=== PATIENT | male | born 1955 | race Caucasian/White ===

== ENCOUNTER 2023-03-11 03:10 | Emergency (ER) | payer OTHER ==
[2023-03-11] MEDS ORDERED: ACETAMINOPHEN 500 MG TAB ONE (04:46)
--- NOTE | 2023-03-11 05:13 | ER ---
Nurse's Notes [facility] Name: Aneesh Ledesma Age: 67 yrs Sex: Male : 1955 Arrival Date: 03/11/2023 Time: 03:10 Bed 8 Private MD: Diagnosis: Fall from standing;Closed head injury Presentation: 03/11 03:12 Chief complaint: Patient states: fell in bathroom pt reports fell forward and hit upper kl lip on bathtub fell lorelei and may have hit back of head on door no active bleeding noted Per EMS patient refused assessment pt refusing tetanus. Coronavirus screen: Vaccine status: Patient reports being unvaccinated. Ebola Screen: Patient negative for fever greater than or equal to 101.5 degrees Fahrenheit, and additional compatible Ebola Virus Disease symptoms. Initial Sepsis Screen: Does the patient meet any 2 criteria? No. Patient's initial sepsis screen is negative. Does the patient have a suspected source of infection? No. Patient's initial sepsis screen is negative. Risk Assessment: Do you want to hurt yourself or someone else? Patient reports no desire to harm self or others. Onset of symptoms was March 11, 2023. 03:12 Method Of Arrival: EMS: [facility] 03:12 Acuity: THOMAS 3 kl Triage Assessment: 03:17 General: Appears in no apparent distress. comfortable, Behavior is calm. Pain: Denies kl pain. Neuro: Level of Consciousness is awake, alert, obeys commands, Oriented to person, place, time, situation, Speech is normal, Facial symmetry appears normal. Injury Description: swelling to upper lip head wound. Historical: - Allergies: 03:15 No Known Allergies; kl - Home Meds: 03:15 amlodipine 10 mg tablet daily [Active]; kl - PMHx: 03:15 Hypertensive disorder; kl - PSHx: 03:15 eye; kl - Immunization history:: Adult Immunizations not immunized. - Social history:: Smoking status: Patient reports use of chewing tobacco. Screenin:53 [facility] ED Fall Risk Assessment (Adult) History of falling in the last 3 months, rv including since admission Yes- single mechanical fall (1 pt) Confusion or Disorientation Yes (5 pts) Intoxicated or Sedated No (0 pts) Impaired Gait Yes (1 pt) Mobility Assist Device Used No (0 pt) Altered Elimination No (0 pt) Score/Fall Risk Level 3 or more points = High Risk Oriented to surroundings, Maintained a safe environment, Educated pt \T\ family on fall prevention, incl call for assistance when getting out of bed, Assessed \T\ reinforced patient's understanding of fall precautions, Provided non-skid footwear, Hourly rounding (assess needs \T\ fall precautionary measures) done, Used ambulatory aids as needed (educated on \T\ assisted with), Used gait belt as appropriate Implemented a Fall Risk Plan of Care, Apply high fall risk patient identification: yellow non skid footwear/ fall signage, Placed fall mat w/ non beveled edge next to bed, Activated bed/chair alarm, Remained w/in arm's length of patient and in sight while toileting, Offered frequent toileting (1:1 observation), Remained with patient while ambulating, Utilized family, sitter, or virtual log driver as indicated. Abuse screen: Denies threats or abuse. Denies injuries from another. Nutritional screening: No deficits noted. Tuberculosis screening: No symptoms or risk factors identified. Assessment: 03:53 General: Appears comfortable, Behavior is calm, uncooperative. Pain: Complains of pain rv in scalp. Neuro: Level of Consciousness is awake, alert, obeys commands, Oriented to person, place, time, situation. Cardiovascular: Capillary refill < 3 seconds. Respiratory: Airway is patent Respiratory effort is even, unlabored. GI: No signs and/or symptoms were reported involving the gastrointestinal system. : No signs and/or symptoms were reported regarding the genitourinary system. Derm: Skin is intact. Vital Signs: 03:12 BP 141 / 87; Pulse 78; Resp 18; Temp 98.3(O); Pulse Ox 95% on R/A; Weight 95.25 kg; Height 5 ft. 11 in. ; Pain 0/10; 05:24 BP 136 / 86; Pulse 76; Resp 16; Temp 98; Pulse Ox 99% ; rv 03:12 Body Mass Index 29.29 (95.25 kg, 180.34 cm) 03:12 Pain Scale: Adult [place] Coma Score: 05:24 Eye Response: spontaneous(4). Motor Response: obeys commands(6). Verbal Response: rv oriented(5). Total: 15. ED Course: 03:12 Patient arrived in ED. 03:14 Salena Yost MD is Attending Physician. sd2 03:15 Triage completed. kl 03:52 Robbie Stiles, RN is Primary Nurse. rv 03:53 Arm band placed on left wrist. rv 03:53 No provider procedures requiring assistance completed. Patient did not have IV access rv during this emergency room visit. 03:54 Patient has correct armband on for positive identification. Placed in gown. Bed in low rv position. Call light in reach. Adult w/ patient. Client placed on continuous cardiac and pulse oximetry monitoring. NIBP monitoring applied. 04:12 CT Head C Spine In Process Unspecified. EDMS 05:25 Provided Education on: STAPLE. rv Administered Medications: 04:47 Drug: Acetaminophen PO 1000 mg Route: PO; rv 05:24 Follow up: Response: No adverse reaction rv Medication: 05:25 VIS not applicable for this client. rv Outcome: 05:12 Discharge ordered by . sd2 05:24 Discharged to home ambulatory, with family. rv 05:24 Condition: improved 05:24 Discharge instructions given to patient, family, Instructed on discharge instructions, follow up and referral plans. wound care, STAPLE Demonstrated understanding of instructions, follow-up care, wound care. 05:25 Patient left the ED. rv Signatures: Dispatcher [employer] Chelsey Pierce, RN RN Robbie Bee, RN RN Salena Salazar MD MD sd2
--- NOTE | 2023-03-11 05:13 | EDPHYS ---
Physician Documentation [facility] Name: Aneesh Ledesma Age: 67 yrs Sex: Male : 1955 Arrival Date: 03/11/2023 Time: 03:10 Bed 8 Private MD: ED Physician Salena Yost HPI: 03/11 05:06 This 67 yrs old Male presents to ER via EMS with complaints of fall. sd2 05:06 67 yo M presents via EMS with CC of fall at home off the toilet hitting his head on the sd2 ground when he went to stand up. States this has been an ongoing issue that he has been worked up for and that he has these issues when he stands up or moves too quickly. reports there was brief LOC and a head laceration. Pt denies any areas of pain. States has been drinking ETOH tonight but last drink was around 10PM. Denies neck or back pain. . Historical: - Allergies: 03:15 No Known Allergies; kl - Home Meds: 03:15 amlodipine 10 mg tablet daily [Active]; kl - PMHx: 03:15 Hypertensive disorder; kl - PSHx: 03:15 eye; kl - Immunization history:: Adult Immunizations not immunized. - Social history:: Smoking status: Patient reports use of chewing tobacco. ROS: 05:06 Constitutional: Negative for fever, chills, and weight loss, Eyes: Negative for injury, sd2 pain, redness, and discharge, Cardiovascular: Negative for chest pain, palpitations, and edema, Respiratory: Negative for shortness of breath, cough, wheezing. Abdomen/GI: Negative for abdominal pain, nausea, vomiting, diarrhea. MS/Extremity: Negative for injury and deformity, Skin: Positive for injury, Negative for rash, and discoloration, Neuro: Positive for headache, Negative for numbness and tingling. Exam: 05:06 Constitutional: This is a well developed, well nourished patient who is awake, alert, sd2 and in no acute distress. Head/Face: 4.5 cm laceration noted to left parietal scalp with controlled bleeding Eyes: EOMI, normal conjunctiva bilaterally Neck: Trachea midline, no thyromegaly or masses palpated, and no cervical lymphadenopathy. Supple, full range of motion without nuchal rigidity, or vertebral point tenderness. No Meningismus. Chest/axilla: Normal chest wall appearance and motion. Nontender with no deformity. Cardiovascular: Regular rate and rhythm with a normal S1 and S2. No gallops, murmurs, or rubs. 2+ distal pulses. Respiratory: Lungs have equal breath sounds bilaterally, clear to auscultation and percussion. No rales, rhonchi or wheezes noted. No increased work of breathing, no retractions or nasal flaring. Abdomen/GI: Soft, non-tender, with normal bowel sounds. No guarding or rebound. No evidence of tenderness throughout. Skin: Warm, dry with normal turgor. Normal color with no rashes, no lesions, and no evidence of cellulitis. MS/ Extremity: Pulses equal, no cyanosis. Neurovascular intact. Full, normal range of motion. Ambulatory without difficulty. Neuro: Awake and alert, GCS 15, oriented to person, place, time, and situation. Cranial nerves II-XII grossly intact. Motor strength 5/5 in all extremities. Sensory grossly intact. Psych: Awake, alert, with orientation to person, place and time. Behavior, mood, and affect are within normal limits. Vital Signs: 03:12 BP 141 / 87; Pulse 78; Resp 18; Temp 98.3(O); Pulse Ox 95% on R/A; Weight 95.25 kg; kl Height 5 ft. 11 in. ; Pain 0/10; 05:24 BP 136 / 86; Pulse 76; Resp 16; Temp 98; Pulse Ox 99% ; rv 03:12 Body Mass Index 29.29 (95.25 kg, 180.34 cm) kl 03:12 Pain Scale: Adult [place] Coma Score: 05:24 Eye Response: spontaneous(4). Motor Response: obeys commands(6). Verbal Response: rv oriented(5). Total: 15. Laceration: 05:06 Wound Repair of 4.5cm ( 1.8in ) subcutaneous laceration to scalp. Linear shaped.. sd2 Hemostasis noted.. Distal neuro/vascular/tendon intact. Anesthesia: None with 1% lidocaine, None with None. Wound prep: Extensive cleansing by nurse, Wound explored, Copious irrigation. Skin closed with 3 1-0 Justino using staple gun. Dressed with 4x4's. Patient tolerated well. MDM: 03:26 Patient medically screened. sd2 05:06 Differential diagnosis: Differential diagnosis includes but is not limited to: sd2 Fracture, contusion, abrasion, closed head injury, pneumothorax, intra-abdominal injury, intracranial hemorrhage, spinal injury among others. Data reviewed: vital signs, nurses notes, EMS record, radiologic studies. Consideration of Admission/Observation Escalation of care including admission/observation considered. Test considered but Not performed: Labs: Pt declined. States does not need syncopal workup as has been done previously. . Historians other than the Patient: Spouse/Significant Other: provides further history. Counseling: I had a detailed discussion with the patient and/or guardian regarding: the historical points, exam findings, and any diagnostic results supporting the discharge/admit diagnosis, lab results, the need for outpatient follow up, to return to the emergency department if symptoms worsen or persist or if there are any questions or concerns that arise at home. ED course: Tetanus UTD. Laceration repaired. NO acute findings on CT imaging. Pt to be discharged home in stable condition. Verbalizes understanding of strict return precautions. . 03/11 03:35 Order name: CT Head C Spine sd2 Administered Medications: 04:47 Drug: Acetaminophen PO 1000 mg Route: PO; rv 05:24 Follow up: Response: No adverse reaction rv Disposition Summary: 03/11/23 05:12 Discharge Ordered Location: Home sd2 Problem: new sd2 Symptoms: have improved sd2 Condition: Stable sd2 Diagnosis - Fall from standing sd2 - Closed head injury sd2 Followup: sd2 - With: Private Physician - When: 2 - 3 days - Reason: Recheck today's complaints, Continuance of care, Re-evaluation by your physician Discharge Instructions: - Discharge Summary Sheet sd2 - Head Injury, Adult sd2 - Sutures, Justino, or Adhesive Wound Closure sd2 Forms: - Medication Reconciliation Form sd2 - Thank You Letter sd2 - Antibiotic Education sd2 - Prescription Opioid Use sd2 - Patient Portal Instructions sd2 - Leadership Thank You Letter sd2 Signatures: Dispatcher [employer] Chelsey Pierce, RN Robbie Wray RN RN rv Dunlop, Stephanie, MD MD sd2
[2023-03-11 05:31] VITALS: BP 136/86; TEMP 98; O2SAT 99
--- NOTE | 2023-03-12 12:46 | RAD REPORT ---
EXAM DESCRIPTION: CT - Head C Spine Mpr Wo Con - 03/11/2023 7:01 am CLINICAL HISTORY: The patient is 67 years old and is Male; TRAUMA TECHNIQUE: Axial computed tomography images of the head/brain and cervical spine without intravenous contrast. Sagittal and coronal reformatted images were created and reviewed. This CT exam was pe rformed using one or more of the following dose reduction techniques: automated exposure control, a djustment of the mA and/or kV according to patient size, and/or use of iterative reconstruction techn ique. COMPARISON: No relevant prior studies available. FINDINGS: Brain: Unremarkable. No hemorrhage. No significant white matter disease. No edema. Ventricles: Unremarkable. No ventriculomegaly. Skull: No acute fracture. Sinuses: Unremarkable as visualized. No acute sinusitis. Mastoid air cells: Unremarkable as visualized. No mastoid effusion. Vertebrae: See below. Discs/spinal canal/neural foramina: Multilevel disc space narrowing with degenerative endplate ch anges most prominent at C6-7. Moderate spinal canal narrowing at C6-7. Mild to moderate spinal canal narrowing at C5-6. Moderate to severe right and moderate left neural foraminal narrowing at C4-5. Moderate bilateral neural foraminal narrowing at C5-6. Moderate bilateral neural foraminal narrowing at C6-7. Soft tissues: Unremarkable. IMPRESSION: No acute intracranial abnormality. No acute findings in the cervical spine. Electronically signed by: Rony Sheehan MD 03/11/2023 4:39 AM CDT Due to temporary technical issues with the PACS/Fluency reporting system, reports are being signed by the in house radiologist without review as a courtesy to ensure prompt reporting. The interpreting r adiologist is fully responsible for the content of the report.
== END 2023-03-11 05:25 | disposition home or self-care (01) ==
LOC: ER 03:10
PROC: 0HQ0XZZ Repair Scalp Skin, External Approach (ICD-10-PCS; principal; 2023-03-11)
DX: S01.01XA Laceration without foreign body of scalp, initial encounter (principal); W18.11XA Fall from or off toilet without subsequent striking against object, initial encounter; I10 Essential (primary) hypertension; F17.220 Nicotine dependence, chewing tobacco, uncomplicated
CPT/HCPCS: 70450; 72125; 99284